=== PATIENT | male | born 1960 | race Caucasian/White ===

== ENCOUNTER 2024-04-09 22:21 | Emergency (ER) | payer MEDICARE, SELFPAY ==
--- OUTSIDE RECORDS SUMMARY | 2024-04-09 22:23 | XMS_ITS | Clinical Summary ---
Author Organization [employer] [facility] [employer] [facility] Address [place], [place] [address] Care Team Providers Care Personal Coach Name Role Phone Kait Arizmendi MD Primary Care Provide r Ruthy Perez RD Unavailable [phone] Allergies Active Allergy Reactions Criticality Noted Date Comments Znwakfw-Kah-Oqk Reductase Inhibitors Agitation 10/02/2013 Sulfa (Sulfonamide Antibiotics) 10/24 Medications MULTIVITAMIN TAB take 1 tablet by oral route once daily with food 0 007 Active DIPHENHYDRAMINE 25 MG CAP take 1/2-1 capsule (12.5 - 25 mg) by oral route every 4 hours as needed 0 009 Active aspirin (ECOTRIN) 81 mg enteric coated tabletIndication s:Coronary artery disease due to lipid rich plaque Take 1 tablet by mouth once daily with a meal. 30 tablet 0 015 Active ACCU-CHEK LIZY PLUS TEST STRP stripIndications :Type 2 diabetes mellitus without complication (HC) USE TO TEST TWICE DAILY 200 Strip 3 016 Active magnesium citrate 100 mg tab Take by mouth. 0 018 Active cyanocobalamin (VITAMIN B-12) 1,000 mcg tablet Take 1 tablet by mouth once daily. 90 tablet 3 019 Active acetaminophen (TYLENOL) 325 mg tablet Take 1 tablet by mouth every 4 hours if needed. Max acetaminophen dose: 4000mg in 24 hrs. 0 019 Active cholecalciferol (Vitamin D) 1,000 unit capsule Take 1 Capsule (1,000 units) by mouth once daily. 0 021 Active blood sugar diagnostic (Ascensia CONTOUR) stripIndications :Type 2 diabetes mellitus without complication, with long-term current use of insulin (HC) Dispense item covered by pt ins. Test 2 times/day. 200 Each 3 022 Active nitroglycerin (NITROSTAT) 0.4 mg sublingual tabletIndication s:Coronary artery disease due to lipid rich plaque Place 1 tablet under the tongue every 5 minutes x 3. 25 Tablet 1 022 Active blood-glucose meterIndications :Type 2 diabetes mellitus without complication, with long-term current use of insulin (HC) Freestyle meter and kit, Dispense meter, test strips, lancets covered by pt ins. 1 Each 023 Active fluticasone (50 mcg per actuation) nasal solution (FLONASE)Indicat ions:Non-seasona l allergic rhinitis, unspecified trigger PLACE 2 SPRAYS INTO EACH NOSTRIL ONCE DAILY 48 mL 3 023 Active CPAPIndications: MAXIMO (obstructive sleep apnea) replacement CPAP machine for home use at pressure: 8-12 cmw , Heated humidifier x 1 q 5 yr, Humidifier chamber x 1 q 6 mo, Full face mask x1 q 3mos, with cushion x 1 q mo, standard tubing x 1 q 3 mo, Headgear x 1 q 6 mo, Filters: Disposable x 2 q mo non-disposable filters x1 q 6mo, Length of Need: 99 months, Frequency of use: Daily 1 Each 11 023 Active atenoloL (TENORMIN) 50 mg tabletIndication s:Essential hypertension Take 2 Tablets (100 mg) by mouth once daily. 180 Tablet 3 023 Active clopidogreL (PLAVIX) 75 mg tabletIndication s:Coronary artery disease due to lipid rich plaque Take 1 Tablet (75 mg) by mouth once daily. 90 Tablet 3 023 Active Microlet LancetIndication s:Type 2 diabetes mellitus without complication, with long-term current use of insulin (HC) USE TO TEST BLOOD SUGAR TWICE DAILY DIRECTED 200 Each 3 024 Active cetirizine (ZYRTEC) 10 mg tabletIndication s:Nasal congestion Take 1 Tablet (10 mg) by mouth once daily. 90 Tablet 3 024 Active hydrOXYzine HCL (ATARAX) 25 mg tabletIndication s:Nasal congestion Take 1 Tablet (25 mg) by mouth at bedtime. 90 Tablet 3 024 Active amLODIPine (NORVASC) 2.5 mg tabletIndication s:HTN (hypertension) Take 1 Tablet (2.5 mg) by mouth once daily. 90 Tablet 3 024 Active insulin glargine, U-300, (Toujeo Max U-300 SoloStar) 300 unit/mL (3 mL) inpn penIndications:t ype 2 diabetes mellitus Inject 44 units subcutaneous before bedtime. 18 mL 2 024 Active Amphetamine-Dext roamphetamine (ADDERALL) 15 mg tabletIndication s:Attention deficit hyperactivity disorder (ADHD), combined type TAKE ONE TABLET BY MOUTH TWICE A DAY 60 Tablet 024 Active Insulin [place]orman, Disposable, (Camilla Pen Needle) 32 gauge x 5/32Indications :Type 2 diabetes mellitus without complication, with long-term current use of insulin (HC) USE TO ADMINISTER INSULIN AT HOME DIRECTED 100 Each 2 Active Basaglar KwikPen U-100 Insulin 100 unit/mL (3 mL) penIndications:T ype 2 diabetes mellitus without complication, with long-term current use of insulin (HC) Inject 44 units subcutaneous before bedtime. Product desired: BASAGLAR 024 Active traZODone (DESYREL) 50 mg tabletIndication s:Insomnia, idiopathic TAKE ONE TABLET BY MOUTH AT BEDTIME . 30 Tablet 024 Active Amphetamine-Dext roamphetamine (ADDERALL) 15 mg tabletIndication s:Attention deficit hyperactivity disorder (ADHD), combined type TAKE ONE TABLET BY MOUTH TWICE A DAY 60 Tablet 024 Active Amphetamine-Dext roamphetamine (AdderalL) 15 mg tabletIndication s:Attention deficit hyperactivity disorder (ADHD), combined type Take 1 Tablet (15 mg) by mouth two times daily. 60 Tablet 025 Active lisinopriL (PRINIVIL; ZESTRIL) 40 mg tabletIndication s:HTN (hypertension) TAKE ONE TABLET BY MOUTH ONCE DAILY 90 Tablet 3 024 Active PARoxetine (PAXIL) 40 mg tabletIndication s:Recurrent major depressive disorder, in partial remission (HC) TAKE TWO TABLETS BY MOUTH EVERY DAY ALONG WITH ONE 10 MG TABLET FOR A TOTAL OF 90MG DAILY 180 Tablet 024 Active PARoxetine (PAXIL) 10 mg tabletIndication s:Recurrent major depressive disorder, in partial remission (HC) TAKE ONE TABLET BY MOUTH EVERY MORNING WITH TWO 40MG TABLETS FOR4 A TOTAL OF 90MG DAILY 90 Tablet 024 Active amphetamine-dext roamphetamine (ADDERALL) 30 mg tabletIndication s:Attention deficit hyperactivity disorder (ADHD), combined type Take 0.5 Tablets (15 mg) by mouth two times daily. 30 Tablet 025 Active PARoxetine (PAXIL) 10 mg tabletIndication s:Recurrent major depressive disorder, in partial remission (HC) TAKE ONE TABLET BY MOUTH EVERY MORNING WITH TWO- 40 MG TABLETS FOR A TOTAL OF 90 MG DAILY 90 Tablet 3 023 2023 Discontinued PARoxetine (PAXIL) 40 mg tabletIndication s:Recurrent major depressive disorder, in partial remission (HC) TAKE TWO TABLETS BY MOUTH EVERY DAY ALONG WITH ONE 10 MG TABLET FOR A TOTAL OF 90 MG DAILY 180 Tablet 3 023 2023 Discontinued lisinopriL (PRINIVIL; ZESTRIL) 40 mg tabletIndication s:HTN (hypertension) TAKE ONE TABLET BY MOUTH ONCE EVERY DAY 90 Tablet 024 2023 Discontinued Amphetamine-Dext roamphetamine (AdderalL) 15 mg tabletIndication s:Attention deficit hyperactivity disorder (ADHD), combined type Take 1 Tablet (15 mg) by mouth two times daily. 60 Tablet 024 2024 Discontinued(* Medication adjustment) Active Problems Problem Noted Date Diagnosed Date Type 2 diabetes mellitus wit h other specified complication, without long-term current use of insulin 03/23/2022 Type 2 diabetes mellitus, wi thout long-term current use of insulin 10/24/2018 Type 2 diabetes mellitus wit hout complication, with long-term current use of insulin 12/28/2015 Allergic rhinitis 01/22/2015 Depression, major, recurrent 12/19/2012 Hyperlipidemia 10/03/2012 MAXIMO 10/06/2009 AHI-77 11/15/2009 CAD (coronary artery disease) 10/10/2009 Anxiety state, unspecified 11/09/2006 Unspecified essential hypertension 11/06/2006 Attention deficit disorder without mention of hy peractivity 11/06/2006 Other and unspecified hyperlipidemia 11/06/2006 Resolved Problems Problem Noted Date Diagnosed Date Resolved Date Diabetes mellitus type II 05/23/2011 Overview (06/10/2013): a system change updated this record. This will not affect patient care or billing. This comment can be deleted. Elevated glucose 11/18/2009 05/23/2011 Sleep apnea 11/18/2009 12/27/2009 Vision blurring 09/24/2009 10/01/2009 Other nonspecific abnormal c ardiovascular system function study 09/24/2009 04/26/2010 Overview (09/24/2009): Abn CT angiogram 09/24/2009 Need for prophylactic vaccin ation with tetanus-diphtheria (Td) 11/17/2008 12/17/2015 Encounters Date Type Department Care Team Description 04/01/2024 Refill [facility] [address] [place] [address] Kait Arizmendi MD Refill Request (Dextroamphetamine-amphet amine 15mg tab) 03/16/2024 Refill [facility] [address] [place] [address] Kait Arizmendi MD Refill Request (Lisinopril, Paroxetine, Paroxetine) 02/11/2024 Refill [facility] [address] [place] [address] Kait Arizmendi MD Refill Request (Amphetamine-dextroamphet amine) from Last 3 Months Immunizations Name Administration Dates Next Due AMB Influenza, IIV3 (Age >=3 years)(Flu Clinic Only) 03/02/2010 COVID-19 VACCINE SPIKEVAX (M ODERNA 50MCG/0.5ML) 12YO+ PFS 05/15/2023 COVID-19 vaccine (Split NTech 30mcg/0.3mL) 12YO+ BIVALENT PF, MDV 01/23/2022 COVID-19 vaccine (Split NTech 30mcg/0.3mL) 12YO+ FOX-SUCROSE PF, MDV 05/30/2021 COVID-19 vaccine (Split NTech 30mcg/0.3mL) PF, MDV 10/05/2020,09/14/2020 HepA-HepB (Twinrix) 09/03/2013,11/07/2012 Hepatitis B (Adult) 11/10/2014 Influenza, IIV3 (Age >=3 years) 04/03/19 14,12/25/2012,01/08/2012,2011,12/28/2010,01/15/2010,01/10/2003 Influenza, IIV4 05/30/2021, 9,12/25/2017,2016,01/20/2016,12/24/2014,12/23/2013 Influenza, IIV4 (=>6mos) MDV 12/24/2014 Influenza, Inactivated AIIV4 (Age 65+ Years) Preserv Free 05/15/2023 Pneumococcal Poly,23-Valent (Pneumovax) 01/08/2012,12/27/2011 Tdap 05/21/2012,11/17/2008 Zoster (Shingrix-RZV, recombinant) 10/24/2018 Family History Medical History Relation Name Comments Heart Disease Maternal Grandfather Shade's disease Mother Heart Disease Paternal Grandfather [place]'s disease Sister Stephani Relation Name Status Comments Brother Ulises Alive Father Jason Alive Maternal Grandfather (Age 60) Maternal Grandmother Mother (Age 60) Paternal Grandfather (Age 60) Paternal Grandmother Sister Stephani Alive Social History Tobacco Use Types Packs/Day Years Used Date Smoking Tobacco: Never Passive Smoke Exposure: Never Smokeless Tobacco: Never Tobacco Cessation:Counseling Given: Yes Alcohol Use Standard Drinks/Week Comments No 0 (1 standard drink = 0.6 oz pur e alcohol) PHQ-2 Answer Date Recorded PHQ-2 TOTAL SCORE 2 05/15/2023 Social Connections Answer Date Recorded Frequency of Communication with Friends and Fami ly Not on file 03/22/2021 Financial Resource Strain Answer Date R ecorded Difficulty of Paying Living Expenses Not on file 03/22/2021 Difficulty of Paying Living Expenses Not on file 03/22/2021 Sex and Gender Information Value Date Recorded Sex Assigned at Not on file Legal Sex Male 5:26 AM POULTRY TENDER Gender Identity Not on file Sexual Orientation Not on file Occupation Industry Job Start Date Job End Date Teacher Not on file Not on file Not on file Obstetrics History Last Filed Vital Signs Vital Sign Reading Time Taken Comments Blood Pressure 148/70 05/15/2023 12:27 PM POULTRY TENDER Ma nually Pulse 50 05/15/2023 12:27 PM POULTRY TENDER Temperature 36.7 C (98 F) 11/10/2014 1:36 PM CDT Respiratory Rate 16 09/24/2009 7:35 PM CDT Oxygen Saturation 100% 05/15/2023 12:21 PM POULTRY TENDER Inhaled Oxygen Concentration - - Weight 99 kg (218 lb 3.2 oz) 05/15/2023 12:21 PM POULTRY TENDER Height 188 cm (6' 2) 05/15/2023 12:21 PM POULTRY TENDER Body Mass Index 28.02 05/15/2023 12:21 PM POULTRY TENDER Plan of Treatment Upcoming Encounters Date Type Department Care Team (Late st Contact Info) Description 04/24/2024 2:15 PM POULTRY TENDER Office Visit [facility] [address] [place] [address] Kait Arizmendi MD [address] [place] [address] Health Maintenance Due Date Last Done Comments HIV for age 15-65 1973 Hepatitis C screening for ag e 18-79 1976 Colonoscopy through age 75 2003 Pneumococcal series for age 50+ (2 of 2 - PCV) 01/07/2013 01/08/2012, 12/27/2011 RSV vaccine for adults or (1 - Risk 60-74 years 1-dose series) 2018 Zoster (shingles) series for age 50+ (2 of 2) 12/19/2018 10/24/2018 Tetanus booster 05/21/2022 05/21/2012, 11/17/2008 Medicare Wellness for age 65+ 2023 COVID-19 vaccine series ( - 2023- season) 2023 05/15/2023, 01/23/2022, 05/30/2021, Additional history exists Influenza for age 65+ 11/25/2023 05/15/2023 , 05/30/2021, 02/12/2019, Additional history exists BMI (ht and wt on same day) for age 18+ 05/15/2024 05/15/2023, 11/16/2020, 10/24/2018, Additional history exists Depression screening for age 12+ 05/15/2024 05/15/2023, 02/04/2022, 01/24/2022, Additional history exists Lipids for age 45-75 01/04/2028 01/03/2023, 07/05/2021, 11/10/2020, Additional history exists Tdap Completed 05/21/2012, 11/17/2008 Procedures Procedure Name Priority Date/Time Associated Diagnosis Comments LIPID PANEL W REFLEX MEASURED LDL Routine 01/03/2023 3:21 PM CDT Type 2 diabetes mellitus without complication, with long-term current use of insulin (HC) from Last 3 Months or Most Recently Relevant to Health Maintenance Results * (ABNORMAL) LIPID PANEL W REFLEX MEASURED LDL (01/03/2023 3:21 PM CDT) CHOLESTEROL,TOTAL 246(H) 100 - 199 mg/dL 01/03/2023 9:23 PM CDT [facility] Comment: Cholesterol, Total Reference Ranges Desirable <200 mg/dL Borderline 200-239 mg/dL High >=240 mg/dL TRIGLYCERIDES 228(H) <150 mg/dL 01/03/2023 9:23 PM CDT [facility] HDL CHOLESTEROL 35(L) >40 mg/dL 9:23 PM CDT [facility] NON-HDL CHOLESTEROL 211(H) <145 mg/dl 01/03/2023 9:23 PM CDT [facility] CHOL/HDL RATIO 7.03(H) <4.50 01/03/2023 9:23 PM CDT [facility] LDL CHOLESTEROL 165(H) <=130 mg/dL 01/03/2023 9:23 PM CDT [facility] VLDL CHOLESTEROL 46(H) <=30 mg/dL 01/03/2023 9:23 PM CDT [facility] PROVIDER ORDERED STATUS RANDOM 01/03/2023 9:23 PM CDT [facility] Blood BLOOD SPECIMEN / Unknown Venipuncture / Unknown 01/03/2023 3:21 PM CDT 01/03/2023 3:23 PM CDT us Kait Arizmendi MD CHEMISTRY Final Result [facility] [address] [place] [address], from Last 3 Months or Most Recently Relevant to Health Maintenance Insurance MEDICARE PB ONLY Advance Directives * Full Code (Latest Code Status on File) Date Activated Date Inactivated Comments 09/24/2009 2:14 PM 09/25/2009 1:18 PM Care Teams Personal Coach Relationship Specialty Start Date End Date Kait Arizmendi MD [address] [place] [address] PCP - General 01/18/[address] [place] [id number] Parboiler [employer] Hoops Scoreboard Operator 06/26/22
[2024-04-09 22:26] VITALS: BP 170/74; PULSE 53; RESP 18; TEMP 36.6; O2SAT 98; BMI 28.2
--- OUTSIDE RECORDS SUMMARY | 2024-04-10 00:28 | XMS_ITS | Clinical Summary ---
Author Organization [employer] [facility] [employer] [facility] Address [place], [place] [address] Care Team Providers Care Fuel Tank Sealer And Tester Name Role Phone Kait Arizmendi MD Primary Care Provide r Ruthy Perez RD Unavailable [phone] Allergies Active Allergy Reactions Criticality Noted Date Comments Qrnlwxh-Rvi-Bjz Reductase Inhibitors Agitation 10/02/2013 Sulfa (Sulfonamide Antibiotics) [...] A DAY 60 Tablet 024 Active Insulin [place], Disposable, (Camilla Pen Needle) 32 gauge x [...] Type Department Care Team Description 04/01/2024 Refill [facility] [address] [place] [address] Kait Arizmendi MD Refill Request (Dextroamphetamine-amphet amine 15mg tab) 03/16/2024 Refill [facility] [address] [place] [address] Kait Arizmendi MD Refill Request (Lisinopril, Paroxetine, Paroxetine) 02/11/2024 Refill [facility] [address] [place] [address] Kait Arizmendi MD Refill Request (Amphetamine-dextroamphet amine) from Last 3 Months Immunizations Name Administration Dates Next Due AMB Influenza, IIV3 (Age >=3 years)(Flu Clinic Only) 03/02/2010 COVID-19 VACCINE SPIKEVAX (M ODERNA 50MCG/0.5ML) 12YO+ PFS 05/15/2023 COVID-19 vaccine ([facility] NTech 30mcg/0.3mL) 12YO+ BIVALENT PF, MDV 01/23/2022 COVID-19 vaccine ([facility] NTech 30mcg/0.3mL) 12YO+ FOX-SUCROSE PF, MDV 05/30/2021 COVID-19 vaccine ([facility] NTech 30mcg/0.3mL) PF, MDV 10/05/2020,09/14/2020 HepA-HepB (Twinrix) [...] Shade's disease Mother Heart Disease Paternal Grandfather [place]'s disease Sister Stephani Relation Name Status Comments [...] on file Legal Sex Male 5:26 AM DROP CLIPPER Gender Identity Not on file Sexual Orientation Not on file Occupation Industry Job Start Date Job End Date Teacher Not on file Not on file Not on file Obstetrics History Last Filed Vital Signs Vital Sign Reading Time Taken Comments Blood Pressure 148/70 05/15/2023 12:27 PM DROP CLIPPER Ma nually Pulse 50 05/15/2023 12:27 PM DROP CLIPPER Temperature 36.7 C (98 F) 11/10/2014 1:36 PM CDT Respiratory Rate 16 09/24/2009 7:35 PM CDT Oxygen Saturation 100% 05/15/2023 12:21 PM DROP CLIPPER Inhaled Oxygen Concentration - - Weight 99 kg (218 lb 3.2 oz) 05/15/2023 12:21 PM DROP CLIPPER Height 188 cm (6' 2) 05/15/2023 12:21 PM DROP CLIPPER Body Mass Index 28.02 05/15/2023 12:21 PM DROP CLIPPER Plan of Treatment Upcoming Encounters Date Type Department Care Team (Late st Contact Info) Description 04/24/2024 2:15 PM DROP CLIPPER Office Visit [facility] [address] [place] [address] Kait Arizmendi MD [address] [place] [address] Health Maintenance Due Date Last Done Comments [...] - 199 mg/dL 01/03/2023 9:23 PM CDT [facility] Comment: Cholesterol, Total Reference Ranges Desirable <200 mg/dL Borderline 200-239 mg/dL High >=240 mg/dL TRIGLYCERIDES 228(H) <150 mg/dL 01/03/2023 9:23 PM CDT [facility] HDL CHOLESTEROL 35(L) >40 mg/dL 9:23 PM CDT [facility] NON-HDL CHOLESTEROL 211(H) <145 mg/dl 01/03/2023 9:23 PM CDT [facility] CHOL/HDL RATIO 7.03(H) <4.50 01/03/2023 9:23 PM CDT [facility] LDL CHOLESTEROL 165(H) <=130 mg/dL 01/03/2023 9:23 PM CDT [facility] VLDL CHOLESTEROL 46(H) <=30 mg/dL 01/03/2023 9:23 PM CDT [facility] PROVIDER ORDERED STATUS RANDOM 01/03/2023 9:23 PM CDT [facility] Blood BLOOD SPECIMEN / Unknown Venipuncture / Unknown 01/03/2023 3:21 PM CDT 01/03/2023 3:23 PM CDT us Kait Arizmendi MD CHEMISTRY Final Result [facility] [address] [place] [address], from Last 3 Months or Most Recently Relevant to Health Maintenance Insurance MEDICARE PB ONLY Advance Directives * Full Code (Latest Code Status on File) Date Activated Date Inactivated Comments 09/24/2009 2:14 PM 09/25/2009 1:18 PM Care Teams Fuel Tank Sealer And Tester Relationship Specialty Start Date End Date Kait Arizmendi MD [address] [place] [address] PCP - General 01/18/[address] [place] [id number] Director Of Medical Review Head Packager 06/26/22
--- NOTE | 2024-04-10 00:50 | ED_ITS ---
HPI - General Adult General Date Seen: 04/10/24 Chief complaint: Ear/Nose/Throat Problem Stated complaint: both ears are plugged Time Seen by Provider: 04/09/24 23:05 History of Present Illness HPI narrative: This is a very pleasant 64-year-old gentleman presenting to the ER [facility] for evaluation of bilaterally clogged ears. He has a history of cerumen impaction in the past and started feeling like his ears were clogged yesterday. He tried to use an at-home serum when Rue removal kit but feels like he is not getting the wax out. He feels like his left ear is persistently clogged and still has some trouble hearing out of his right ear. He is not having any ear drainage or bleeding. No fever. No cough. No headache. Related Data Allergies Allergy/AdvReac Type Severity Reaction Status Date / Time Sulfa (Sulfonamide Allergy Mild Verified 04/09/24 22:33 Antibiotics) PFSH PFS Social History Do you use any of these nicotine containing products: None How often do you have a drink containing alcohol: never AUDIT-C Alcohol total score: 0 Non-prescribed substance use: denies use Exam Narrative: Exam Narrative: Constitutional: Appears well-developed and well-nourished. Alert. Conversant. Non toxic. HENT: Head: Atraumatic. Nose: Nose normal. Right Ear: Mastoid, pinna, are normal. The canal is completely obstructed with cerumen. I reviewed gently remove the cerumen using a lighted curette until I could see is eardrum. I was able to clear almost all of the cerumen other canal. There is quite a bit of edema and erythema especially on the lower border of the canal. I suspect probably irritation from his attempts trying to remove that cerumen at home versus possible evolving otitis externa. TM looks normal. No perforation. No fluid behind. Left ear: Mastoid, pinna, canal are normal. He has already cleared the cerumen out of his left ear canal. The TM does have some opaque fluid behind it but is not erythematous and bulging. Mouth/Throat: Oral mucosa is clear and moist. no trismus. Pharynx normal. Tonsils symmetric. No tonsillar enlargement, erythema, or exudate. Eyes: Conjunctivae normal. EOM normal. Pupils equal, round, and reactive to light. No scleral icterus. Neck: Normal range of motion. Neck supple. No tracheal deviation present. Cardiovascular: Normal capillary refill Pulmonary/Chest: Effort normal. No stridor. No respiratory distress Musculoskeletal: RUE: Normal range of motion. No tenderness. No deformity LUE: Normal range of motion. No tenderness. No deformity RLE: Normal range of motion. No edema. No tenderness. No deformity LLE: Normal range of motion. No edema. No tenderness. No deformity Neurological: Alert and oriented to person, place, and time. Normal strength. CN II-VII intact. No sensory deficit. GCS eye subscore is 4. GCS verbal subscore is 5. GCS motor subscore is 6. Normal coordination Skin: Skin is warm and dry. No rash noted. No pallor. Normal capillary refill. Psychiatric: Normal mood. Normal affect. Const: Vital Signs, click to edit/add: Vital Signs - 24 hr 04/09/24 22:26 Temperature 97.8 F Pulse Rate [Pulse Oximeter] 53 L Respiratory Rate 18 Blood Pressure [Ri ght Forearm] 170/74 H Pulse Oximetry 98 Oxygen Delivery Me thod Room Air Course Vital Signs Vital signs: Initial Vital Signs Temperature 97.8 F 04/09/24 22:26 Temperature Source Temporal Artery Scan 04/09/24 22:26 Pulse Rate 53 L 04/09/24 22:26 Pulse Rhythm Regular 04/09/24 22:26 Respiratory Rate 18 04/09/24 22:26 Blood Pressure 170/74 H 04/09/24 22:26 Blood Pressure Mean 106 H 04/09/24 22:26 Blood Pressure Position Sitting 04/09/24 22:26 Pulse Oximetry 98 04/09/24 22:26 Oxygen Delivery Method Room Air 04/09/24 22:26 Vital Signs Temperature 97.8 F 04/09/24 22:26 Pulse Rate 53 L 04/09/24 22:26 Respiratory Rate 18 04/09/24 22:26 Blood Pressure 170/74 H 04/09/24 22:26 Pulse Oximetry 98 04/09/24 22:26 Oxygen Delivery Method Room Air 04/09/24 22:26 Temperature 97.8 F 04/09/24 22:26 Pulse Rate 53 L 04/09/24 22:26 Respiratory Rate 18 04/09/24 22:26 Blood Pressure 170/74 H 04/09/24 22:26 Pulse Oximetry 98 04/09/24 22:26 Oxygen Delivery Method Room Air 04/09/24 22:26 Medical Decision Making MDM Narrative Medical decision making narrative: Pleasant 64-year-old gentleman presenting to the ER today because both of his ears are clogged any feels like he has cerumen impaction. n my exam he has actually gotten the cerumen out of his left ear canal and that is widely open. He does have what appears to be a serous effusion behind his left ear which probably explains the muffled hearing there. I do not see any evidence for a canal foreign body. No evidence for TM perforation on that side. No erythema or bulging to suggest an otitis media On the right ear he does have a complete cerumen impaction which I was able to remove using the lighted ear curette. Once I am able to get the wax out I am able to visualize his TM on that side and it looks normal. He does have quite a bit of erythema on the left lower canal. Either irritation from his attempts to remove the cerumen or evolving otitis externa. Will put him on Cortisporin otic. Recommend outpatient follow-up with PCP or ENT clinic. Patient comfortable with plan of care. Instymeds prescription provide Discharge Plan Discharge Clinical Impression: Otitis externa, Cerumen impaction Patient Disposition: Home, Self-Care Condition: Stable Instructions: Swimmer's Ear (ED) Additional Instructions: As we discussed, we were able to get almost all the wax out of your right ear canal here in the ER. You had already gotten the wax out of your left ear canal at home. The skin of your right ear canal is quite red and irritated. I am concerned he may be developing an infection in that ear. Please use the antibiotic drops in your right ear. Please come back to the ER right away if you have any concerns especially worsening pain, trouble hearing, high fever, severe headache, or any problems. If you have trouble with ear wax again, you can follow-up with your regular doctor, or call the ENT clinic [phone] to schedule an appointment with the ENT Clinic in [place]. Follow Up/Referrals: Kait Arizmendi MD [Primary Care Provider] - Stand Alone Forms: [employer] Info Instructions
== END 2024-04-10 00:26 | disposition home or self-care (01) ==
LOC: ED 04-10 00:26
PROVIDERS: Emergency Provider Emergency Medicine; PCP Family Medicine
DX: H60.91 Unspecified otitis externa, right ear (principal); H61.21 Impacted cerumen, right ear
CPT/HCPCS: 69210; 99282; 99283

== ENCOUNTER 2024-04-11 18:59 | Outpatient (CLI) | payer MEDICARE, SELFPAY | END 2024-04-11 19:00 | disposition home or self-care (01) | LOC: AMB 04-25 00:22 | PROVIDERS: PCP Family Medicine; Visit Provider Student in an Organized Health Care Education/Training Program | DX: R11.10 Vomiting, unspecified (principal) | CPT/HCPCS: A0425; A0427 ==

== ENCOUNTER 2024-04-11 19:24 | Emergency (ER) | payer MEDICARE, SELFPAY ==
--- OUTSIDE RECORDS SUMMARY | 2024-04-11 19:26 | XMS_ITS | Clinical Summary ---
Author Organization [facility] Address [place], [place] [address] Care Team Providers Care Research Attorney Name Role Phone Kait Arizmendi MD Primary Care Provide r Ruthy Perez RD Unavailable [phone] Allergies Active Allergy Reactions Criticality Noted Date Comments Uifzoyp-Ufr-Xbq Reductase Inhibitors Agitation 10/02/2013 Sulfa (Sulfonamide Antibiotics) [...] A DAY 60 Tablet 024 Active Insulin [place], Disposable, (Camilla Pen Needle) 32 gauge x [...] Type Department Care Team Description 04/01/2024 Refill [facility] [address] [place] [address] Kait Arizmendi MD Refill Request (Dextroamphetamine-amphet amine 15mg tab) 03/16/2024 Refill [facility] [address] [place] [address] Kait Arizmendi MD Refill Request (Lisinopril, Paroxetine, Paroxetine) 02/11/2024 Refill [facility] [address] [place] [address] Kait Arizmendi MD Refill Request (Amphetamine-dextroamphet amine) from Last 3 Months Immunizations Name Administration Dates Next Due AMB Influenza, IIV3 (Age >=3 years)(Flu Clinic Only) 03/02/2010 COVID-19 VACCINE SPIKEVAX (M ODERNA 50MCG/0.5ML) 12YO+ PFS 05/15/2023 COVID-19 vaccine ([employer] NTech 30mcg/0.3mL) 12YO+ BIVALENT PF, MDV 01/23/2022 COVID-19 vaccine ([employer] NTech 30mcg/0.3mL) 12YO+ FOX-SUCROSE PF, MDV 05/30/2021 COVID-19 vaccine ([employer] NTech 30mcg/0.3mL) PF, MDV 10/05/2020,09/14/2020 HepA-HepB (Twinrix) [...] Shade's disease Mother Heart Disease Paternal Grandfather Sheffield's disease Sister Stephani Relation Name Status Comments [...] on file Legal Sex Male 5:26 AM TEXTILE CONSERVATOR Gender Identity Not on file Sexual Orientation Not on file Occupation Industry Job Start Date Job End Date Teacher Not on file Not on file Not on file Obstetrics History Last Filed Vital Signs Vital Sign Reading Time Taken Comments Blood Pressure 148/70 05/15/2023 12:27 PM TEXTILE CONSERVATOR Ma nually Pulse 50 05/15/2023 12:27 PM TEXTILE CONSERVATOR Temperature 36.7 C (98 F) 11/10/2014 1:36 PM CDT Respiratory Rate 16 09/24/2009 7:35 PM CDT Oxygen Saturation 100% 05/15/2023 12:21 PM TEXTILE CONSERVATOR Inhaled Oxygen Concentration - - Weight 99 kg (218 lb 3.2 oz) 05/15/2023 12:21 PM TEXTILE CONSERVATOR Height 188 cm (6' 2) 05/15/2023 12:21 PM TEXTILE CONSERVATOR Body Mass Index 28.02 05/15/2023 12:21 PM TEXTILE CONSERVATOR Plan of Treatment Upcoming Encounters Date Type Department Care Team (Late st Contact Info) Description 04/24/2024 2:15 PM TEXTILE CONSERVATOR Office Visit [facility] [address] [place] [address] Kait Arizmendi MD [address] [place] [address] Health Maintenance Due Date Last Done Comments [...] - 199 mg/dL 01/03/2023 9:23 PM CDT [facility] Comment: Cholesterol, Total Reference Ranges Desirable <200 mg/dL Borderline 200-239 mg/dL High >=240 mg/dL TRIGLYCERIDES 228(H) <150 mg/dL 01/03/2023 9:23 PM CDT [facility] HDL CHOLESTEROL 35(L) >40 mg/dL 9:23 PM CDT [facility] NON-HDL CHOLESTEROL 211(H) <145 mg/dl 01/03/2023 9:23 PM CDT [facility] CHOL/HDL RATIO 7.03(H) <4.50 01/03/2023 9:23 PM CDT [facility] LDL CHOLESTEROL 165(H) <=130 mg/dL 01/03/2023 9:23 PM CDT [facility] VLDL CHOLESTEROL 46(H) <=30 mg/dL 01/03/2023 9:23 PM CDT [facility] PROVIDER ORDERED STATUS RANDOM 01/03/2023 9:23 PM CDT [facility] Blood BLOOD SPECIMEN / Unknown Venipuncture / Unknown 01/03/2023 3:21 PM CDT 01/03/2023 3:23 PM CDT us Kait Arizmendi MD CHEMISTRY Final Result [facility] [address] [place] [address], from Last 3 Months or Most Recently Relevant to Health Maintenance Insurance MEDICARE PB ONLY Advance Directives * Full Code (Latest Code Status on File) Date Activated Date Inactivated Comments 09/24/2009 2:14 PM 09/25/2009 1:18 PM Care Teams Research Attorney Relationship Specialty Start Date End Date Kait Arizmendi MD [address] [place] [address] PCP - General 01/18/[address] [place] [address] Fat Purification Worker Sample Stitcher 06/26/22
[2024-04-11 19:37] VITALS: BP 184/93; PULSE 50; RESP 22; TEMP 36.6; O2SAT 99; BMI 28.2
[2024-04-11] MEDS: 0.9 % SODIUM CHLORIDE 500 ML 500 ML 1000 ML IV (20:07)
[2024-04-11] MEDS: ONDANSETRON 2 MG/ML inj 4 MG IVP (20:07)
--- OUTSIDE RECORDS SUMMARY | 2024-04-11 20:07 | XMS_ITS | Clinical Summary ---
Author Organization [facility] Address [place], [place] [address] Care Team Providers Care Process Development Technician Name Role Phone Kait Arizmendi MD Primary Care Provide r Ruthy Perez RD Unavailable [phone] Allergies Active Allergy Reactions Criticality Noted Date Comments Dlljpbp-Lup-Dtd Reductase Inhibitors Agitation 10/02/2013 Sulfa (Sulfonamide Antibiotics) [...] A DAY 60 Tablet 024 Active Insulin [place], Disposable, (Camilla Pen Needle) 32 gauge x [...] Type Department Care Team Description 04/01/2024 Refill [facility] [address] [place] [address] Kait Arizmendi MD Refill Request (Dextroamphetamine-amphet amine 15mg tab) 03/16/2024 Refill [facility] [address] [place] [address] Kait Arizmendi MD Refill Request (Lisinopril, Paroxetine, Paroxetine) 02/11/2024 Refill [facility] [address] [place] [address] Kait Arizmendi MD Refill Request (Amphetamine-dextroamphet amine) from Last 3 Months Immunizations Name Administration Dates Next Due AMB Influenza, IIV3 (Age >=3 years)(Flu Clinic Only) 03/02/2010 COVID-19 VACCINE SPIKEVAX (M ODERNA 50MCG/0.5ML) 12YO+ PFS 05/15/2023 COVID-19 vaccine ([employer] NTech 30mcg/0.3mL) 12YO+ BIVALENT PF, MDV 01/23/2022 COVID-19 vaccine ([employer] NTech 30mcg/0.3mL) 12YO+ FOX-SUCROSE PF, MDV 05/30/2021 COVID-19 vaccine ([employer] NTech 30mcg/0.3mL) PF, MDV 10/05/2020,09/14/2020 HepA-HepB (Twinrix) [...] Shade's disease Mother Heart Disease Paternal Grandfather Hiller's disease Sister Stephani Relation Name Status Comments [...] on file Legal Sex Male 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 COOK Gender Identity Not on file Sexual Orientation Not on file Occupation Industry Job Start Date Job End Date Teacher Not on file Not on file Not on file Obstetrics History Last Filed Vital Signs Vital Sign Reading Time Taken Comments Blood Pressure 148/70 05/15/2023 12:27 PM CATERING COOK Ma nually Pulse 50 05/15/2023 12:27 PM CATERING COOK Temperature 36.7 C (98 F) 11/10/2014 1:36 PM CDT Respiratory Rate 16 09/24/2009 7:35 PM CDT Oxygen Saturation 100% 05/15/2023 12:21 PM CATERING COOK Inhaled Oxygen Concentration - - Weight 99 kg (218 lb 3.2 oz) 05/15/2023 12:21 PM CATERING COOK Height 188 cm (6' 2) 05/15/2023 12:21 PM CATERING COOK Body Mass Index 28.02 05/15/2023 12:21 PM CATERING COOK Plan of Treatment Upcoming Encounters Date Type Department Care Team (Late st Contact Info) Description 04/24/2024 2:15 PM CATERING COOK Office Visit [facility] [address] [place] [address] Kait Arizmendi MD [address] [place] [address] Health Maintenance Due Date Last Done Comments [...] - 199 mg/dL 01/03/2023 9:23 PM CDT [facility] Comment: Cholesterol, Total Reference Ranges Desirable <200 mg/dL Borderline 200-239 mg/dL High >=240 mg/dL TRIGLYCERIDES 228(H) <150 mg/dL 01/03/2023 9:23 PM CDT [facility] HDL CHOLESTEROL 35(L) >40 mg/dL 9:23 PM CDT [facility] NON-HDL CHOLESTEROL 211(H) <145 mg/dl 01/03/2023 9:23 PM CDT [facility] CHOL/HDL RATIO 7.03(H) <4.50 01/03/2023 9:23 PM CDT [facility] LDL CHOLESTEROL 165(H) <=130 mg/dL 01/03/2023 9:23 PM CDT [facility] VLDL CHOLESTEROL 46(H) <=30 mg/dL 01/03/2023 9:23 PM CDT [facility] PROVIDER ORDERED STATUS RANDOM 01/03/2023 9:23 PM CDT [facility] Blood BLOOD SPECIMEN / Unknown Venipuncture / Unknown 01/03/2023 3:21 PM CDT 01/03/2023 3:23 PM CDT us Kait Arizmendi MD CHEMISTRY Final Result [facility] [address] [place] [address], from Last 3 Months or Most Recently Relevant to Health Maintenance Insurance MEDICARE PB ONLY Advance Directives * Full Code (Latest Code Status on File) Date Activated Date Inactivated Comments 09/24/2009 2:14 PM 09/25/2009 1:18 PM Care Teams Process Development Technician Relationship Specialty Start Date End Date Kait Arizmendi MD [address] [place] [address] PCP - General 01/18/[address] [place] [address] Emblem Fuser Tender Account Strategist 06/26/22
--- NOTE | 2024-04-11 20:13 | ED_ITS ---
HPI - General Adult General Chief complaint: Dizziness/Vertigo Stated complaint: nausea/vomiting Time Seen by Provider: 04/11/24 19:39 Source: patient Mode of arrival: EMS History of Present Illness HPI narrative: 64-year-old male presents the ED via EMS. He said that he started having sudden onset of nausea and vomiting this evening. Feels slightly dizzy when he turns his head to the side but no vertigo at rest. No stroke-like symptoms or movement deficit. Had not been feeling well earlier, so he did not take his insulin. Blood sugar 260 per EMS. No abdominal pain, no injury or trauma. Did not try any interventions at home prior to calling 911. Flu swab collected in triage. Reports that he had a cerumen impaction was in the ED a few days ago, had a little bit of fluid in the middle ear but this seems to be resolving. No known illness exposures. No diarrhea, no bloody stools. Feels slightly weak. No breathing difficulty, chest pain. No recent medication changes. Does take atenolol which would explain his borderline low heart rate. No hypotension noted by EMS. Past medical history notable for coronary artery disease and hypertension. No recent changes in medications. ED note from a couple days ago with cerumen impaction reviewed. Benign seeming. ROS is notable for the GI and generalized symptoms as above, otherwise denies times 12 systems. Related Data Home Medications ?Medication ?Instructions ?Recorded ?Confirmed amlodipine 2.5 mg tablet 2.5 mg PO DAILY 04/11/24 04/11/24 atenolol 50 mg tablet 50 mg PO BID 04/11/24 04/11/24 clopidogrel 75 mg tablet 75 mg PO DAILY 04/11/24 04/11/24 dextroamphetamine-amphetamine 15 PO 04/11/24 mg tablet hydroxyzine HCl 25 mg tablet 25 mg PO DAILY 04/11/24 04/11/24 insulin glargine 100 unit/mL (3 unit subcut 04/11/24 mL) subcutaneous pen (Basaglar KwikPen U-100 Insulin) lisinopril 40 mg tablet 40 mg PO DAILY 04/11/24 04/11/24 paroxetine HCl 10 mg tablet 10 mg PO DAILY 04/11/24 04/11/24 pen needle, diabetic 32 gauge x 04/11/24 04/11/24 (BD Ultra-Fine Camilla Pen Needle) trazodone 50 mg tablet 50 mg PO QPM 04/11/24 04/11/24 Allergies Allergy/AdvReac Type Severity Reaction Status Date / Time Sulfa (Sulfonamide Allergy Mild Verified 04/09/24 22:33 Antibiotics) [facility] Social History Do you use any of these nicotine containing products: None How often do you have a drink containing alcohol: never AUDIT-C Alcohol total score: 0 Non-prescribed substance use: denies use Exam Const: Vital Signs, click to edit/add: Vital Signs - 24 hr 04/11/24 19:37 Temperature 97.9 F Pulse Rate [Pulse Oximeter] 50 L Respiratory Rate 22 Blood Pressure [Ri ght Upper Arm] 184/93 H Pulse Oximetry 99 Documenting provider has reviewed patient's vital signs: yes Common normals: no apparent distress and oriented x3 General appearance: cooperative, comfortable and well kempt HENMT: Common normals: normocephalic, TM's normal bilaterally, moist oral mucous membranes and oropharynx normal Head and scalp: normocephalic Tympanic membrane: TM's normal bilaterally Other: Slight abrasion to the inferior left ear canal, no signs of surrounding cellulitis or infection. Both TMs have normal light reflex now, fluid appears to be dissipating. Eye: Common normals: PERRL, EOMs intact bilaterally and conjunctivae normal General eye: normal appearance of both eyes Conjunctiva: conjunctiva(e) normal Pupil: PERRL Neck & C-Spine: Common normals: full ROM and no lymphadenopathy Resp: Common normals: normal respiratory effort, no use of accessory muscles and clear to auscultation bilaterally Effort & inspection: able to speak in complete sentences Auscultation: clear to auscultation bilaterally Cardio: Common normals: regular rate, regular rhythm, S1 normal heart sound, S2 normal heart sound and no murmurs Rate: regular rate Rhythm: regular rhythm Heart sounds: S1 normal and S2 normal GI: Common normals: Normal to inspection, nondistended, normoactive bowel sounds present, soft to palpation, non-tender, no hepatosplenomegaly and no masses Palpation: soft and no hepatosplenomegaly Extremity: Common normals: normal capillary refill General: normal exam except as noted Neuro: Common normals: oriented x3, CN's II-XII intact bilaterally, moves all extremities and no focal motor deficits Motor exam: strength 5/5 throughout and no movement abnormalities noted Psych: Appearance: well kempt Activity/motor behavior: appropriate eye contact Mood and affect: euthymic mood Insight: insight good Judgement: judgment good Skin: Common normals: no rashes or lesions noted General skin exam: no rashes or lesions noted Course Course ED Course: 64-year-old male with nausea and vomiting. No signs of bowel obstruction, stroke or other etiology on exam. Differential diagnosis including gastritis, obstruction, pancreatitis, influenza, COVID, gastritis, amongst others. I do not see any signs of serious vertigo. Counseled patient on findings. Exam really does appear quite benign. He was agreeable to a trial of Zofran, 0.5 L of IV fluid and then re-evaluation. If things have improved, no further workup likely needed. We are seeing a lot of gastroenteritis right now. If not feeling improved or persistent vomiting, would recommend labs and imaging. He was agreeable to this. Await clinical response. Trial of fluids after Zofran. Reevaluation(s) Time of Reevaluation #1: 20:41 Reevaluation #1: Viral swabs negative. Patient feeling much better after Zofran. Tolerated crackers and water without difficulty in the ED. I do not recommend further workup. Symptomatic treatment with Zofran, rest and slowly advancing diet as tolerated. Okay to use Tylenol and ibuprofen for mild discomfort. Okay to use [id number] Imodium if he develops loose stools. Alarm symptoms reviewed that would warrant ED presentation. Patient verbalized understanding and agreement. Written instructions provided. Vital Signs Vital signs: Initial Vital Signs Temperature 97.9 F 04/11/24 19:37 Temperature Source Temporal Artery Scan 04/11/24 19:37 Pulse Rate 50 L 04/11/24 19:37 Respiratory Rate 22 04/11/24 19:37 Blood Pressure 184/93 H 04/11/24 19:37 Blood Pressure Mean 123 H 04/11/24 19:37 Blood Pressure Position Sitting 04/11/24 19:37 Pulse Oximetry 99 04/11/24 19:37 Vital Signs Temperature 97.9 F 04/11/24 19:37 Pulse Rate 50 L 04/11/24 19:37 Respiratory Rate 22 04/11/24 19:37 Blood Pressure 184/93 H 04/11/24 19:37 Pulse Oximetry 99 04/11/24 19:37 Temperature 97.9 F 04/11/24 19:37 Pulse Rate 50 L 04/11/24 19:37 Respiratory Rate 22 04/11/24 19:37 Blood Pressure 184/93 H 04/11/24 19:37 Pulse Oximetry 99 04/11/24 19:37 Medications Administered Medications: Discontinued Medications Generic Name Dose Route Start Last Admin Trade Name Hugh PRN Reason Stop Dose Admin Sodium Chloride 500 mls @ 1,000 mls/hr 04/11/24 19:59 04/11/24 20:28 0.9 % Sodium Chloride 500 Ml IV 04/11/24 20:28 Infused .Q30M MARIAA Infusion Ondansetron HCl 4 mg 04/11/24 19:58 04/11/24 20:07 Ondansetron 2 Mg/Ml Inj IVP 04/11/24 19:59 4 mg ONCE ONE Administration Medical Decision Making Lab Data Lab results reviewed: Yes I reviewed the patient's lab results Lab results narrative: Viral swabs negative Labs: Lab Results 04/11/24 Range/Units 19:35 SARS-CoV-2 (PCR) Negative SARS-CoV-2 (Negative) Influenza Type A (PCR) Negative PCR FLU A (Negative) Influenza Type B (PCR) Negative PCR FLU B (Negative) RSV (PCR) Negative PCR RSV (Negative) Discharge Plan Discharge Clinical Impression: Gastroenteritis Patient Disposition: Home w/ Parent or Adult Condition: Improved Instructions: Gastroenteritis (DC) Additional Instructions: As we discussed, your exam is most consistent with the stomach flu, also noticed gastroenteritis. Her swabs were negative for influenza, COVID and RSV. I am glad the Zofran was so effective for you in managing the nausea and vomiting. Most people find this to be true. I have given you prescription for ondansetron, also known as Zofran. I would recommend that you automatically take another dose at 4:00 a.m.. Set an alarm to do so. It dissolves under the tongue on his markedly effective at treating nausea vomiting. It is okay to use [id number] Imodium if you get diarrhea. Symptoms with this tend to last 3-5 days. Low-grade fevers, body aches and loose stools can be common. If you have persistent high fever, bloody stools, bloody vomit, severe weakness or other signs of complication, please return to the emergency department. Activity Level: No Restrictions Discharge Diet: Regular Prescriptions: No Action paroxetine HCl 10 mg tablet 10 mg PO DAILY trazodone 50 mg tablet 50 mg PO QPM amlodipine 2.5 mg tablet 2.5 mg PO DAILY clopidogrel 75 mg tablet 75 mg PO DAILY dextroamphetamine-amphetamine 15 mg tablet PO hydroxyzine HCl 25 mg tablet 25 mg PO DAILY lisinopril 40 mg tablet 40 mg PO DAILY atenolol 50 mg tablet 50 mg PO BID insulin glargine [Basaglar KwikPen U-100 Insulin] 100 unit/mL (3 mL) insulin pen subcut (DME) pen needle, diabetic [BD Ultra-Fine Camilla Pen Needle] 32 gauge x 5/32 needle MISCELLANEOUS Patient Comments: [NO ORIGINAL SIG] Follow Up/Referrals: Kait Arizmendi MD [Primary Care Provider] - Stand Alone Forms: [facility] Info Instructions
[2024-04-11 20:18] LABS: PCR FLU A Negative PCR FLU A (Negative); PCR FLU B Negative PCR FLU B (Negative); PCR RSV Negative PCR RSV (Negative); SARS PCR* Negative SARS-CoV-2 (Negative)
== END 2024-04-11 20:57 | disposition home or self-care (01) ==
PROVIDERS: Emergency Provider Family Medicine; PCP Family Medicine
DX: K52.9 Noninfective gastroenteritis and colitis, unspecified (principal)
CPT/HCPCS: 87631; 96374; 99283; 99284; J2405; J7030